=== PATIENT | female | born 1970 | race Caucasian/White ===

== ENCOUNTER 2018-02-23 19:25 | Emergency (ER) | payer OTHER ==
[~2018-02-23] VITALS: Ht 154.9 cm; Wt 72.6 kg
[~2018-02-23 19:25] MED LIST: B12INJ; B12INJ IM; CYCLOBENZAPRINE5 MG PO; IBUPROFEN 200200 M1 PO; NAPROSYN500 MG PO; POTASSIUM20 PO; ZOFRAN ODT4 MG PO
[2018-02-23 19:57] LABS: ABSOLUTE NEUTROPHILS 5.9 thou/uL (1.4-8.2); EOSINOPHILS 3.1 % (0.0-3.0); HEMATOCRIT 41.7 % (37.0-47.0); HEMOGLOBIN 14.3 gm/dL (12.0-15.0); LYMPHOCYTES 29.3 % (24.0-44.0); MCH 31.2 pg (26.0-34.0); MCHC 34.2 g/dL (28.0-37.0); MCV 91.1 fL (80.0-100.0); MONOCYTES 6.2 % (1.0-8.0); PLATELET COUNT 341 thou/uL (150-400); POLYS 60.4 % (36.0-66.0); RBC 4.58 mil/uL (4.20-5.00); RDW 12.9 % (10.5-14.5); WBC 9.9 thou/uL (4.0-11.0)
[2018-02-23 20:05] LABS: CALCIUM 9.6 mg/dL (8.5-10.1); CREATININE 0.9 mg/dL (0.6-1.0); POTASSIUM 4.2 mmol/L (3.5-5.1)
[2018-02-23 20:12] LABS: TOTAL BILIRUBIN 0.4 mg/dL (<0.1-1.0); TOTAL PROTEIN 8.6 g/dL (6.4-8.2)
[2018-02-23 21:09] LABS: URINE BILIRUBIN NEGATIVE (Negative); URINE BLOOD 3+ (Negative); URINE CLARITY CLEAR; URINE COLOR YELLOW; URINE GLUCOSE-RANDOM* NEGATIVE (Negative); URINE KETONES NEGATIVE (Negative); URINE LEUKOCYTES-REFLEX NEGATIVE (Negative); URINE NITRITE-REFLEX NEGATIVE (Negative); URINE PROTEIN (DIPSTICK) NEGATIVE (Negative); URINE SPECIFIC GRAVITY <= 1.005 (1.005-1.035); URINE UROBILINOGEN 0.2 E.U./dl (0.2-1.0)
[2018-02-23] MEDS ORDERED: ONDANSETRON HCL4 M2 PO (21:11)
[2018-02-23 21:26] LABS: BACTERIA-REFLEX 1-9 Few /HPF (None Seen); CASTS None Seen /LPF (None Seen); CRYSTALS None Seen /LPF (None Seen); SQUAMOUS 0-3 Few /LPF (0-3); URINE RBC 0-2 Rare /HPF (0-2); URINE WBC-REFLEX None Seen /HPF (0-5)
[2018-02-23 21:38] VITALS: BP 127/78
== END 2018-02-23 21:39 | disposition home or self-care (01) ==
LOC: ER 19:25
PROVIDERS: Physician Assistant
DX: K80.50 Calculus of bile duct without cholangitis or cholecystitis without obstruction (principal); R11.2 Nausea with vomiting, unspecified; Z91.018 Allergy to other foods; Z88.5 Allergy status to narcotic agent; Z91.012 Allergy to eggs; Z88.8 Allergy status to other drugs, medicaments and biological substances; Z91.010 Allergy to peanuts; Z88.2 Allergy status to sulfonamides; Z86.2 Personal history of diseases of the blood and blood-forming organs and certain disorders involving the immune mechanism

== ENCOUNTER → 2018-02-28 | Outpatient (CLI) | payer OTHER ==
[~2018-02-28] MED LIST changes: +ONDANSETRON HCL4 M2 PO
== END ==
LOC: NUC 09:36
DX: R10.11 Right upper quadrant pain (principal); R11.2 Nausea with vomiting, unspecified

== ENCOUNTER 2019-02-13 11:43 | Emergency (ER) | payer OTHER ==
[~2019-02-13] VITALS: Ht 154.9 cm; Wt 72.6 kg
[2019-02-13] MEDS ORDERED: TORADOL 10 MG T10 MG PO (12:48)
[2019-02-13] MEDS ORDERED: LIDOCAINE PAIN1 EACH TRANSDERM (12:48)
[2019-02-13 13:05] VITALS: BP 111/78
== END 2019-02-13 13:11 | disposition home or self-care (01) ==
LOC: ER 11:43
DX: S39.82XA Other specified injuries of lower back, initial encounter (principal); Z88.5 Allergy status to narcotic agent; Z91.012 Allergy to eggs; Z91.018 Allergy to other foods; Z91.010 Allergy to peanuts; Z88.2 Allergy status to sulfonamides; Z88.8 Allergy status to other drugs, medicaments and biological substances; Z98.51 Tubal ligation status; Z86.2 Personal history of diseases of the blood and blood-forming organs and certain disorders involving the immune mechanism; W10.8XXA Fall (on) (from) other stairs and steps, initial encounter; Y93.89 Activity, other specified; Y92.89 Other specified places as the place of occurrence of the external cause; Y99.8 Other external cause status

== ENCOUNTER 2019-10-11 13:35 | Emergency (ER) | payer OTHER ==
[~2019-10-11] VITALS: Ht 154.9 cm; Wt 79.4 kg
[2019-10-11 13:35] VITALS: BP 152/103
[~2019-10-11 13:35] MED LIST changes: -B12INJ IM; +B12INJ PO; +LIDOCAINE PAIN1 EACH TRANSDERM; +TORADOL 10 MG T10 MG PO
[2019-10-11] MEDS ORDERED: TRIAMCINOLONE A15 G3 TOP (14:25)
[2020-02-16] MEDS ORDERED: KETOROLAC TROME10 MG PO (10:51)
[2020-02-16] MEDS ORDERED: CYCLOBENZAPRINE10 MG PO (10:51)
[2020-02-16] MEDS ORDERED: ONDANSETRON ODT4 MG PO (10:52)
[2020-02-16] MEDS ORDERED: ESCITALOPRA5 MG/5 ML PO (10:53)
[2020-02-16] MEDS ORDERED: ADVIL200 M3 PO (10:56)
[2020-02-16] MEDS ORDERED: VITAMIN E400 UNI4 PO (10:56)
[2020-02-16] MEDS ORDERED: VITAMIN C120 G1 PO (10:57)
[2020-02-16] MEDS ORDERED: MAGNESIUM MALATE1 GM PO (10:58)
[2020-02-16] MEDS ORDERED: ZINC50 MG PO (10:59)
[2020-02-16] MEDS ORDERED: [UNRECOGNIZED DRUG - OTHER] PO (11:00)
[2020-02-16] MEDS ORDERED: [UNRECOGNIZED DRUG - OTHER] PO (11:02)
[2020-02-16] MEDS ORDERED: IRON18 M1 PO (11:03)
[2020-02-16] MEDS ORDERED: L-CARNITINE500 MG PO (11:03)
[2020-02-16] MEDS ORDERED: ACTIVE PO ×2 (11:04)
[2020-02-16] MEDS ORDERED: PANTOTHENIC AC500 MG PO (11:05)
[2020-02-16] MEDS ORDERED: QUERCETIN PO (11:06)
[2020-02-16] MEDS ORDERED: [UNRECOGNIZED DRUG - OTHER] PO (11:07)
[2020-02-16] MEDS ORDERED: SELENIUM PO (11:07)
[2020-02-16] MEDS ORDERED: VITAMIN D350 MC3 PO (11:08)
== END 2019-10-11 14:26 | disposition home or self-care (01) ==
LOC: ER 13:35
DX: R21 Rash and other nonspecific skin eruption (principal); L29.9 Pruritus, unspecified; Z98.51 Tubal ligation status; Z86.718 Personal history of other venous thrombosis and embolism; Z79.899 Other long term (current) drug therapy; Z88.5 Allergy status to narcotic agent; Z91.018 Allergy to other foods; Z91.012 Allergy to eggs; Z88.6 Allergy status to analgesic agent; Z88.2 Allergy status to sulfonamides; Z88.8 Allergy status to other drugs, medicaments and biological substances

== ENCOUNTER 2019-11-15 18:27 | Emergency (ER) | payer OTHER ==
[~2019-11-15] VITALS: Ht 154.9 cm; Wt 79.4 kg
[~2019-11-15 18:27] MED LIST changes: +TRIAMCINOLONE A15 G3 TOP
[2019-11-15 18:48] LABS: URINE BILIRUBIN NEGATIVE (Negative); URINE BLOOD NEGATIVE (Negative); URINE CLARITY CLEAR; URINE COLOR YELLOW; URINE GLUCOSE-RANDOM* NEGATIVE (Negative); URINE KETONES NEGATIVE (Negative); URINE LEUKOCYTES-REFLEX NEGATIVE (Negative); URINE NITRITE-REFLEX NEGATIVE (Negative); URINE PROTEIN (DIPSTICK) NEGATIVE (Negative); URINE UROBILINOGEN 0.2 E.U./dl (0.2-1.0)
[2019-11-15 19:05] LABS: BASOPHILS 0.3 % (0.0-2.0); EOSINOPHILS 0.2 % (0.0-3.0); HEMATOCRIT 43.2 % (37.0-47.0); HEMOGLOBIN 14.9 gm/dL (12.0-15.0); LYMPHOCYTES 14.4 % (24.0-44.0); MCH 31.3 pg (26.0-34.0); MCHC 34.4 g/dL (28.0-37.0); MCV 91.1 fL (80.0-100.0); MONOCYTES 3.6 % (1.0-8.0); PLATELET COUNT 288 thou/uL (150-400); POLYS 81.5 % (36.0-66.0); RBC 4.74 mil/uL (4.20-5.00); RDW 13.3 % (10.5-14.5)
[2019-11-15 19:12] LABS: ANION GAP 8 mmol/L (7-16); BUN 9 mg/dL (7-18); CALCIUM 9.1 mg/dL (8.5-10.1); CHLORIDE 98 mmol/L (98-107); CO2 29 mmol/L (21-32); GLUCOSE 145 mg/dL (74-106); POTASSIUM 3.4 mmol/L (3.5-5.1); SODIUM 135 mmol/L (136-145)
[2019-11-15 19:23] LABS: ALBUMIN 3.8 g/dL (3.4-5.0); LIPASE 271 U/L (73-393); SGOT 23 U/L (15-37); SGPT 33 U/L (30-65); TOTAL BILIRUBIN 0.5 mg/dL (0.2-1.0); TROPONIN-I <0.06 ng/mL (<0.06)
[2019-11-15] MEDS ORDERED: LEXAPRO 10 MG T10 MG PO (19:29)
[2019-11-15] MEDS ORDERED: CYCLOBENZAPRINE5 MG PO (21:10)
[2019-11-15] MEDS ORDERED: ONDANSETRON HCL4 M2 PO (21:10)
[2019-11-15] MEDS ORDERED: TORADOL 10 MG T10 MG PO (21:33)
[2019-11-15 21:43] VITALS: BP 138/56
--- NOTE | 2019-11-16 07:47 | EKG ---
[facility] [place] [address] ELECTROCARDIOGRAM REPORT Name: KIM MACDONALD Room #: DEP [facility]#: [id number] Admission: 11/15/19 Attend Phys: Discharge: 11/15/19 Date of : 74 Report #: [id number] THIS REPORT FOR: cc: Ana Colon DNP, Mary E. DNP Lundgren, Craig H. MD [facility] ~ THIS REPORT FOR: //name// [facility] ED Test Date: 2019-11-15 Test Time: 19:01:57 Pat Name: KIM MACDONALD Department: Room: Gender: F Grand Scribe: : 1970 Requested By: Barney Chakraborty Order Number: [id number] MD: Driss Manzano Measurements Intervals [place] Rate: 79 P: 16 CO: 138 QRS: -35 QRSD: 86 T: 36 QT: 385 QTc: 442 Interpretive Statements Sinus rhythm Left axis deviation Poor R wave progression No previous ECG available for comparison Electronically Signed On 11-16-2019 7:46:49 CDT by Driss Manzano [email or web address] <ELECTRONICALLY SIGNED> By: Driss Manzano MD, FAC 11/16/19 0746 00 00 Driss Manzano MD, [facility] /EPI
== END 2019-11-15 21:46 | disposition home or self-care (01) ==
LOC: ER 18:27
PROVIDERS: Physician Assistant
DX: K80.50 Calculus of bile duct without cholangitis or cholecystitis without obstruction (principal); G43.909 Migraine, unspecified, not intractable, without status migrainosus; R11.2 Nausea with vomiting, unspecified; M54.2 Cervicalgia; Z88.8 Allergy status to other drugs, medicaments and biological substances; Z88.5 Allergy status to narcotic agent; Z86.718 Personal history of other venous thrombosis and embolism; Z86.711 Personal history of pulmonary embolism; Z79.899 Other long term (current) drug therapy; Z91.018 Allergy to other foods; Z91.012 Allergy to eggs; Z91.010 Allergy to peanuts; Z88.2 Allergy status to sulfonamides

== ENCOUNTER → 2020-01-12 | Outpatient (CLI) | payer OTHER ==
[~2020-01-12] MED LIST changes: +LEXAPRO 10 MG T10 MG PO
== END ==
LOC: LAB 14:42
PROVIDERS: ATTEND Nurse Practitioner
DX: R51.9 Headache, unspecified (principal); R09.89 Other specified symptoms and signs involving the circulatory and respiratory systems; Z20.828 Contact with and (suspected) exposure to other viral communicable diseases

== ENCOUNTER → 2020-02-15 | Outpatient (CLI) | payer OTHER ==
[~2020-02-15] MED LIST changes: +ACTIVE PO; +ADVIL200 M3 PO; +CYCLOBENZAPRINE10 MG PO; +ESCITALOPRA5 MG/5 ML PO; +IRON18 M1 PO; +KETOROLAC TROME10 MG PO; +L-CARNITINE500 MG PO; +MAGNESIUM MALATE1 GM PO; +ONDANSETRON ODT4 MG PO; +PANTOTHENIC AC500 MG PO; +QUERCETIN PO; +SELENIUM PO; +VITAMIN C120 G1 PO; +VITAMIN D350 MC3 PO; +VITAMIN E400 UNI4 PO; +ZINC50 MG PO; +[UNRECOGNIZED DRUG - OTHER] PO; +[UNRECOGNIZED DRUG - OTHER] PO; +[UNRECOGNIZED DRUG - OTHER] PO
== END ==
LOC: LAB 09:40
PROVIDERS: ATTEND Surgery
DX: Z01.12 Encounter for hearing conservation and treatment (principal); Z20.828 Contact with and (suspected) exposure to other viral communicable diseases

== ENCOUNTER 2020-02-20 08:13 | Observation (INO) | payer OTHER ==
[2020-02-20] VITALS (7 sets, daily range): BP systolic 106–140; BP diastolic 60–90
[~2020-02-20] VITALS: Ht 154.9 cm; Wt 80.7 kg
--- NOTE | ~2020-02-20 | O ---
[facility] [place] [address] OPERATIVE REPORT Name: KIM MACDONALD Room #: 434-P [facility] M..#: [id number] Admission: 02/20/20 Attend Phys: Ayden Wilson MD Discharge: Date of : 74 Report #: [id number] THIS REPORT FOR: cc: Ana Colon DNP, Mary E. DNP Chu,Ayden Camargo MD ~ CC: Ana Wilson PREOPERATIVE DIAGNOSIS: Acalculous cholecystitis. POSTOPERATIVE DIAGNOSIS: Acalculous cholecystitis. PROCEDURE PERFORMED: Laparoscopic cholecystectomy with cholangiogram. SURGEON: Ayden Wilson MD ANESTHESIA: General anesthesia. COMPLICATIONS: None. ESTIMATED BLOOD LOSS: 5 mL. PROCEDURE NOTE: With the patient under general anesthesia, abdomen was prepped and draped in sterile fashion. Timeout was performed. The patient received IV antibiotics preop. 0.25% Marcaine was used to anesthetize the skin infraumbilically. Fascia was identified, grasped with hemostat. Fascia was then opened under visualization. An 0 Vicryl suture was placed on the fascia edges for retraction. Veress needle was then placed through the peritoneum. Abdominal cavity was insufflated with CO2 without difficulty. After creating pneumoperitoneum, an 11 mm trocar was placed under visualization through the infraumbilical wound. Two 5 mm trocars were placed in the right upper quadrant and a 5 mm trocar was placed in right epigastrium. Abdominal content appeared as normal on laparoscopic evaluation. The gallbladder was grasped and noted to be dilated, more rounder than the typical appearance. The proximal gallbladder was identified. The gallbladder was also noted to be elongated. The cystic duct was rather fairly easily identified. Peritoneum was dissected free laterally and also medially. The patient has reported ALLERGY TO CLIPS. After the cystic duct was isolated, a 2-0 Vicryl tie was placed on the junction of cystic duct to the gallbladder. Opening was made in the cystic duct, cholangiogram catheter was placed. I could get just a little bit of the tip in likely folds or maybe even stricturing of the cystic duct; likely folds in the cystic duct. No stone was milked from the cystic duct. A 2-0 Vicryl tie was used to hold the catheter in place. Fluoroscopic cholangiogram was obtained. The catheter was identified in the cystic duct, no harm to the common duct. Common duct filled out well, no filling defect. The suture was then trimmed off and the catheter was removed. The proximal part of the cystic duct was then [facility] [address] [place] [address] OPERATIVE REPORT Name: KIM MACDONALD Room #: 434-P [facility] Solo#: [id number] Admission: 02/20/20 Attend Phys: Ayden Wilson MD Discharge: Date of : 74 Report #: [id number] also tied with 2-0 Vicryl tie using a knot pusher. Two separate ties were placed proximally on the cystic duct. Cystic duct was then divided. Cystic artery was then identified. The cystic artery was ligated with 2-0 Vicryl ties x 2 proximally. The distal end was easily cauterized and sealed off. Gallbladder was free from the liver bed. Gallbladder was then retrieved through the infraumbilical port. Mild cholesterolosis identified in the gallbladder wall. The liver bed was checked, hemostasis obtained. The ties were intact. No blood or bile seen. Irrigation was aspirated out. CO2 was evacuated. Infraumbilical fascia defect was closed with [id number] 0 Vicryl x 2. Skin was irrigated, closed with 5-0 PDS. Steri-Strips applied. Band-Aids were used. The patient tolerated the procedure well and was taken to recovery room. By: 1250 1447 Ayden Wilson MD /nt
--- NOTE | 2020-02-20 16:26 | NUR ---
PT TO UNIT AT 1445. PT VSS, A&OX4. PT PLEASANT, AGREES TO CALL WHEN NEEDING ASSISTANCE. ADMISSION COMPLETED. PT GIVEN PAIN MEDICATION, RESPONDED WELL TO MEDS. PT HAS FOUR SITES WITH BANDAIDS FROM SURGERY. PT AT BEDSIDE. IV PATENT, FLUIDS INFUSING.
[2020-02-21 03:36] VITALS: BP 111/71
--- NOTE | 2020-02-21 05:22 | NUR ---
ASSESSED AT START OF SHIFT. PT A&OX4 IV INTACT WITH FLUIDS INFUSING. UP WITH SBA TO THE BATHROOM. ON 2L OF O2 FOR COMFORT. LAP SITES C/D/I. PT C/O NAUSEA AND PAIN MANAGED BY IV MEDS. MILADY PO LIQUIDS FALL PREC IN PLACE AND ALL LIGHT IN REACH WILL CONT TO MONITOR.
[2020-02-21 07:45] VITALS: BP 116/74
--- NOTE | 2020-02-21 09:25 | NUR ---
ASSESSMENT: CM REVIEWED CHART AND MET WITH PATIENT. PT IS ALERT AND ORIENTED X4. PT IS S/P LAP MEJIA. PT REPORTS LIVING IN A HOUSE WITH HER AND SON. PT REPORTS HAVING A COUPLE STEPS TO ENTER THE HOME BUT NO STEPS SHE HAS TO USE ONCE INSIDE. PT REPORTS SHE IS FULLY INDEPENDENT WITH ADLS AND AMBULATION. PT REPORTS NO HX OF HH IN THE PAST. CM DISCUSSED ROLE. PT DOES NOT ANTICIPATE HAVING ANY NEEDS FROM CM. PLANS ARE FOR PATIENT TO DISCHARGE HOME ONCE MEDICALLY STABLE.
--- NOTE | 2020-02-21 09:44 | NUR ---
ASSUMED PT CARE THIS AM. PT VSS, A&OX4. LAP SITES C/D/I. PAIN IN ABDOMEN IS A 4, WHICH PT REPORTED IS MANAGEABLE, AND HEADACHE PAIN IS AT A 5. ON ROOM AIR. PT ATE A GOOD PORTION OF BREAKFAST. ENCOURAGED TO WALK AROUND UNIT TODAY. DRINKING FLUIDS WELL. IV PATENT, FLUIDS INFUSING. PT AMBULATORY TO THE RESTROOM. STEADY ON HER FEET.
[2020-02-21] MEDS ORDERED: KETOROLAC TROME10 MG PO (13:10)
[2020-02-21] MEDS ORDERED: TRAMADOL 50 MG50 MG PO (13:11)
[2020-02-21 15:54] VITALS: BP 116/74
--- NOTE | 2020-02-23 15:07 | PATH ---
[facility] [address] [place] [address] PATHOLOGY RPT PROCEDURE Name: TREV NAPOLES Room #: 434-P [facility] Kian Banda#: [id number] Admission: 02/20/20 Date of : 74 Discharge: 02/21/20 Report #: [id number] Path Case #: [id number] [facility] Accession Number: [id number] . 01 Material submitted: . gallbladder - GALLBLADDER . 01 Clinical history: . ACUTE CHOLECYSTITIS . 02 Diagnosis: Gallbladder, cholecystectomy: - Chronic cholecystitis. (MAP/db; 02/23/20) LBQ 02/23/2020 1250 Local . 02 Electronically signed: . Bronson Martinez MD, Pathologist NPI- [id number] . 01 Gross description: . The specimen is received in formalin, labeled "Trev Napoles", "gallbladder". Received is a previously opened gallbladder measuring 7.4 x 4.2 x 1.1 cm. The serosal surface is wrinkled, shiny and pale yellow-green. The gallbladder is opened to show a pale green-capps, spongy, bile stained mucosa with no polypoid adhesions or solid mass is identified. The gallbladder wall measures 0.1-0.2 cm in thickness. No calculi are identified within the gallbladder or container. Business Integration Manager sections are submitted in cassette A1.(SNA; 02/21/2020) JUAN JOSE/EDMOND 02/21/2020 1630 Local . 02 Pathologist provided ICD-10: K81.1 . 02 CPT . 548821 Specimen Comment: A courtesy copy of this report has been sent to [phone] Specimen Comment: [phone] Specimen Comment: Report sent to / DR EGAN Performed at: [address] [id number] MD Rome Gamble MD Phone: [phone] Performed at: [address] [id number] [address] [address] PATHOLOGY RPT PROCEDURE Name: TREV NAPOLES Room #: 434-P [facility] Kian MRachel#: [id number] Admission: 02/20/20 Date of : 74 Discharge: 02/21/20 Report #: [id number] Path Case #: [id number] MD Tiana Sanchez MD Phone: [phone]
== END 2020-02-21 17:05 | disposition home or self-care (01) ==
LOC: TBA 08:13 → OR 08:13 → TBA 08:15 → OR 09:21 → 4S 14:05 → OR 14:11 → 4S 14:13
PROVIDERS: ADMIT Surgery; ATTEND Surgery
DX: K81.9 Cholecystitis, unspecified (principal); F41.9 Anxiety disorder, unspecified; G43.909 Migraine, unspecified, not intractable, without status migrainosus; Z79.899 Other long term (current) drug therapy
CPT/HCPCS: 50010; 50101; 50411; 50555; 50558; 51489; 52265; 53307; 53310; 55317; 56462; 56525; 56526; 56719; 62110; 62900; 70005

== ENCOUNTER → 2020-04-09 | Outpatient (CLI) | payer OTHER ==
[~2020-04-09] MED LIST changes: +TRAMADOL 50 MG50 MG PO
[2020-04-09 11:19] LABS: ABSOLUTE NEUTROPHILS 6.5 thou/uL (1.4-8.2); BASOPHILS 0.8 % (0.0-2.0); EOSINOPHILS 3.4 % (0.0-3.0); HEMATOCRIT 43.4 % (37.0-47.0); HEMOGLOBIN 14.5 gm/dL (12.0-15.0); LYMPHOCYTES 23.1 % (24.0-44.0); MCH 30.9 pg (26.0-34.0); MCHC 33.4 g/dL (28.0-37.0); MCV 92.5 fL (80.0-100.0); MONOCYTES 6.2 % (1.0-8.0); PLATELET COUNT 362 thou/uL (150-400); POLYS 66.5 % (36.0-66.0); RDW 13.5 % (10.5-14.5); WBC 9.7 thou/uL (4.0-11.0)
[2020-04-09 12:46] LABS: ALBUMIN 3.9 g/dL (3.4-5.0); ANION GAP 13 mmol/L (7-16); BUN 8 mg/dL (7-18); CALCIUM 9.8 mg/dL (8.5-10.1); CHLORIDE 102 mmol/L (98-107); CHOLESTEROL 253 mg/dL (<200); CO2 26 mmol/L (21-32); CREATININE 0.9 mg/dL (0.6-1.0); GLUCOSE 102 mg/dL (74-106); HDL CHOLESTEROL 50 mg/dL (>40); LDL CHOLESTEROL 135 mg/dL (<100); POTASSIUM 4.2 mmol/L (3.5-5.1); SGOT 24 U/L (15-37); SGPT 42 U/L (30-65); SODIUM 141 mmol/L (136-145); TC:HDL 5.1 Ratio (Not establshd); TOTAL BILIRUBIN 0.3 mg/dL (0.2-1.0); TOTAL PROTEIN 8.1 g/dL (6.4-8.2); TRIGLYCERIDE 342 mg/dL (<150); VLDL 68 mg/dL (<40)
== END ==
LOC: RAD 10:51 → LAB 10:51
PROVIDERS: ATTEND Nurse Practitioner
DX: Z12.31 Encounter for screening mammogram for malignant neoplasm of breast (principal); E78.5 Hyperlipidemia, unspecified; E03.9 Hypothyroidism, unspecified; D51.0 Vitamin B12 deficiency anemia due to intrinsic factor deficiency

== ENCOUNTER 2020-06-21 13:47 | Emergency (ER) | payer OTHER ==
[~2020-06-21] VITALS: Ht 154.9 cm; Wt 68.0 kg
[2020-06-21 15:15] VITALS: BP 142/76
== END 2020-06-21 15:16 | disposition home or self-care (01) ==
LOC: ER 13:47
DX: S05.01XA Injury of conjunctiva and corneal abrasion without foreign body, right eye, initial encounter (principal); Z79.1 Long term (current) use of non-steroidal anti-inflammatories (NSAID); Z79.899 Other long term (current) drug therapy; Z88.2 Allergy status to sulfonamides; Z88.5 Allergy status to narcotic agent; Z91.018 Allergy to other foods; Z91.010 Allergy to peanuts; Z91.041 Radiographic dye allergy status; Z91.011 Allergy to milk products; Z91.048 Other nonmedicinal substance allergy status; X58.XXXA Exposure to other specified factors, initial encounter; Y93.89 Activity, other specified; Y92.89 Other specified places as the place of occurrence of the external cause; Y99.8 Other external cause status

== ENCOUNTER 2020-08-03 22:01 | Emergency (ER) | payer OTHER ==
[~2020-08-03] VITALS: Ht 154.9 cm; Wt 86.2 kg
[2020-08-03 22:07] VITALS: BP 152/104
[2020-08-03] MEDS ORDERED: TRIAMCINOLONE A15 G1 TOP ×3 (22:57→23:00)
== END 2020-08-03 23:00 | disposition home or self-care (01) ==
LOC: ER 22:01
DX: L25.9 Unspecified contact dermatitis, unspecified cause (principal); M79.7 Fibromyalgia; Z90.49 Acquired absence of other specified parts of digestive tract; Z79.899 Other long term (current) drug therapy; Z86.718 Personal history of other venous thrombosis and embolism; Z88.5 Allergy status to narcotic agent; Z91.018 Allergy to other foods; Z88.6 Allergy status to analgesic agent; Z88.2 Allergy status to sulfonamides; Z91.041 Radiographic dye allergy status; Z91.010 Allergy to peanuts; Z91.048 Other nonmedicinal substance allergy status; Z91.011 Allergy to milk products; Z88.8 Allergy status to other drugs, medicaments and biological substances

== ENCOUNTER 2021-04-10 13:59 | Emergency (ER) | payer OTHER ==
[~2021-04-10] VITALS: Ht 160 cm; Wt 77.1 kg
[~2021-04-10 13:59] MED LIST changes: +TRIAMCINOLONE A15 G1 TOP
[2021-04-10 14:16] VITALS: BP 138/83
[2021-04-10 15:00] LABS: URINE BILIRUBIN NEGATIVE (Negative); URINE BLOOD TRACE (Negative); URINE CLARITY CLEAR; URINE COLOR YELLOW; URINE GLUCOSE-RANDOM* NEGATIVE (Negative); URINE KETONES NEGATIVE (Negative); URINE LEUKOCYTES-REFLEX TRACE (Negative); URINE NITRITE-REFLEX NEGATIVE (Negative); URINE PROTEIN (DIPSTICK) NEGATIVE (Negative); URINE UROBILINOGEN 0.2 E.U./dl (0.2-1.0)
[2021-04-10 15:09] LABS: ABSOLUTE NEUTROPHILS 6.2 thou/uL (1.4-8.2); BASOPHILS 0.9 % (0.0-2.0); EOSINOPHILS 2.3 % (0.0-3.0); HEMATOCRIT 41.2 % (37.0-47.0); LYMPHOCYTES 19.9 % (24.0-44.0); MCH 31.2 pg (26.0-34.0); MCV 91.9 fL (80.0-100.0); MONOCYTES 6.1 % (1.0-8.0); PLATELET COUNT 340 thou/uL (150-400); POLYS 70.8 % (36.0-66.0); RBC 4.49 mil/uL (4.20-5.00); RDW 12.8 % (10.5-14.5); WBC 8.8 thou/uL (4.0-11.0)
[2021-04-10 15:17] LABS: CREATININE 0.9 mg/dL (0.6-1.0); POTASSIUM 3.7 mmol/L (3.5-5.1)
[2021-04-10 15:22] LABS: ALBUMIN 3.5 g/dL (3.4-5.0); TOTAL BILIRUBIN 0.8 mg/dL (0.2-1.0); TOTAL PROTEIN 7.5 g/dL (6.4-8.2)
[2021-04-10] MEDS ORDERED: NAPROXEN250 MG PO (17:16)
[2021-04-10] MEDS ORDERED: KEFLEX250 MG PO (17:16)
[2021-04-10] MEDS ORDERED: PYRIDIUM200 MG PO (17:16)
== END 2021-04-10 17:37 | disposition home or self-care (01) ==
LOC: ER 13:59
PROVIDERS: Emergency Medicine
DX: R31.9 Hematuria, unspecified (principal); R10.31 Right lower quadrant pain; M79.7 Fibromyalgia; Z86.718 Personal history of other venous thrombosis and embolism; Z98.890 Other specified postprocedural states; Z79.899 Other long term (current) drug therapy; Z88.2 Allergy status to sulfonamides; Z88.8 Allergy status to other drugs, medicaments and biological substances; Z88.6 Allergy status to analgesic agent; Z88.3 Allergy status to other anti-infective agents; Z91.041 Radiographic dye allergy status; Z91.040 Latex allergy status; Z91.011 Allergy to milk products; Z88.5 Allergy status to narcotic agent; Z91.018 Allergy to other foods; Z91.010 Allergy to peanuts